=== PATIENT | male | born 1960 | race Caucasian/White ===

== ENCOUNTER 2018-10-19 21:20 | Emergency (ER) | payer OTHER ==
[2018-10-20] MEDS: IBUPROFEN 200 MG TAB PO (00:28)
== END 2018-10-20 02:57 | disposition home or self-care (01) ==
LOC: FTE 10-20 02:57
DX: S89.92XA Unspecified injury of left lower leg, initial encounter (principal); M70.52 Other bursitis of knee, left knee; W01.0XXA Fall on same level from slipping, tripping and stumbling without subsequent striking against object, initial encounter; Y92.9 Unspecified place or not applicable; Y93.41 Activity, dancing
CPT/HCPCS: 29505; 73562; 99283-25